=== PATIENT | female | born 1995 | race Two or more races ===

== ENCOUNTER 2016-09-06 23:36 | Observation (INO) | payer BC ==
[~2016-09-06] VITALS: Ht 170.2 cm; Wt 90.7 kg
== END 2016-09-07 00:42 | disposition home or self-care (01) | DRG 782 ==
LOC: LDRP 23:36
PROVIDERS: ADMIT Obstetrics & Gynecology; ATTEND Obstetrics & Gynecology
DX: O36.8130 Decreased fetal movements, third trimester, not applicable or unspecified (principal); Z3A.31 31 weeks gestation of pregnancy
CPT/HCPCS: 59025; 81002; G0378